=== PATIENT | female | born 1965 | race Caucasian/White ===

== ENCOUNTER 2019-05-27 | Inpatient (IN) | payer OTHER ==
--- NOTE | 2019-05-26 16:00 | NUR ---
PT IMMEDIALTY TO ROOM FOR BEDSIDE TRIAGE
[2019-05-26 16:16] LABS: HEMATOCRIT 46.6 % (37.0-47.0); HEMOGLOBIN 15.1 g/dl (12.0-16.0); IMMATURE GRANULOCYTES 0.2 % (0.0-5.0); MEAN CELL VOLUME 96.1 fL CALC (80.0-100.0); MEAN CORPUSCULAR HGB 31.1 pG CALC (26.0-32.0); MEAN CORPUSCULAR HGB CONC 32.4 g/L CALC (32.0-36.0); NEUT# 7.2 thou/uL (2.00-7.15); RED BLOOD COUNT 4.85 mill/uL (4.20-5.60); RED CELL DISTRI WIDTH 12.9 % (11.5-15.5)
[2019-05-26 16:29] LABS: ALBUMIN 4.6 g/dL (3.2-5.0); BILIRUBIN, TOTAL 0.4 mg/dL (0.0-1.4); BUN 5 mg/dL (7-17); BUN/CREATININE RATIO 8 (12-20 (CALC)); CARBON DIOXIDE 29 mmol/l (22-30); CHLORIDE 97 mmol/l (95-108); CREATININE 0.6 mg/dL (0.5-1.0); GFR > 60 ML/MIN (>=60 (CALC)); GFR FOR AFR.AMER. > 60 ML/MIN (>=60 (CALC)); SGOT/AST 21 u/l (14-36); SODIUM 138 mmol/l (137-146)
[2019-05-26 16:39] LABS: ALKALINE PHOSPHATASE 80 u/l (38-126); ANION GAP 15 (6-22 (CALC)); POTASSIUM 3.3 mmol/l (3.5-5.1)
--- NOTE | 2019-05-26 17:00 | NUR ---
PT SITTING IN HIGH FOWLERS POSITION; NO ACUTE S/S OF DISTRESS NOTED; O2 NC IN PLACE; IV ANTIBIOTICS INFUSING; PT C/O LOWER ABD PAIN RATING 9 OUT OF 10; MD NOTIFIED
--- NOTE | 2019-05-26 17:56 | NUR ---
PT TO CT IN STABLE CONDITION AT THIS TIME
--- NOTE | 2019-05-26 18:29 | NUR ---
PT MEDICATED PER MAR FOR LOWER QUADRANT PAIN RATING 9 OUT OF 10; VSS; WILL CONTINUE TO MONITOR
--- NOTE | 2019-05-26 18:50 | NUR ---
REPORT TO MIMA RADFORD
--- NOTE | 2019-05-26 19:00 | NUR ---
IN ROOM INTRODUCED SELF TO PT. NO C/O AT THIS TIME.
--- NOTE | 2019-05-26 19:43 | NUR ---
SBAR SENT TO ICU
--- NOTE | 2019-05-26 19:57 | NUR ---
REPORT TO MACHO GUILLERMO.
--- NOTE | 2019-05-26 20:05 | NUR ---
PT. TAKEN TO ICU VIA STRETCHER, NO C/O.
--- NOTE | 2019-05-26 20:05 | NUR ---
PT. ARRIVES VIA STRETCHER FROM ER. PT. WITH EVEN, SHALLOW RESPIRATION AND DYSPNEA WITH EXERTION. SCANT COUGH NOTED. WHEEZES NOTED THROUGHOUT. COARSE TO BASES BILATERALLY. PT. REPORTS 4/10 PAIN TO PUBIS BONE AREA AT THIS TIME. PT. AWAKE, ALERT, ORIETNED X 3. ASSISTED TO BSC AT THIS TIME. URINE SPECIMEN OBTAINED AND WILL SEND FOR LAB. PT. REPORTS SHE HAS UPPER AND LOWER DENTURES, BUT DOES NOT HAVE EITHER WITH HER. INTRODUCED TO CALL LIGHT AND CALL SYSTEM. UPDATED ON PLAN OF CARE. WILL CONTINUE TO CLOSELY MONITOR.
[2019-05-26 20:15] VITALS: BP 80/44
[2019-05-26 20:30] VITALS: BP 75/46
[2019-05-26 20:45] VITALS: BP 81/51
[2019-05-26 21:00] VITALS: BP 91/55
--- NOTE | 2019-05-26 21:05 | NUR ---
PT. PROVIDED WITH HS MEAL. PT. VOICES NO OTHER COMPLAINTS OR NEEDS AT THIS TIME. CALL LIGHT REMAINS WITHIN REACH. WILL CONTINUE TO MONITOR.
[2019-05-26 22:00] VITALS: BP 82/51
--- NOTE | 2019-05-26 22:35 | NUR ---
PT. RESTING IN BED WITH EYES CLOSED IN NO DISTRESS. SCAN DRY COUGH NOTED. IV FLUIDS INITIATED PER PHYSICIAN ORDERS. CALL LIGHT REMAINS WITHIN REACH. WILL CONTINUE TO CLOSELY MONITOR.
[2019-05-26 23:21] LABS: URINE BILIRUBIN - DIPSTICK NEGATIVE (NEGATIVE); URINE BLOOD DIPSTICK NEGATIVE (NEGATIVE); URINE COLOR YELLOW; URINE GLUCOSE - DIPSTICK NEGATIVE (NEGATIVE); URINE KETONE 15 mg/dL (NEGATIVE); URINE LEUK ESTERASE NEGATIVE (NEGATIVE); URINE NITRITE - DIPSTICK NEGATIVE (Negative); URINE PROTEIN - DIPSTICK NEGATIVE (NEG-TRACE); URINE SPECIFIC GRAVITY <=1.005; URINE UROBILINOGEN - DIPSTICK 0.2 E.U./dL (0.2)
[2019-05-27] VITALS (12 sets, daily range): BP systolic 84–113; BP diastolic 46–78
[~2019-05-27] MED LIST: ADVAIR DISK1 IN; ADVAIR DISK1 INH; ALBUTERO1 IN; ALBUTEROL SUL0.083 % IN; ALBUTEROL2.5 MG/3 M IN; ALPRAZOLAM0.5 M2 PO; AMOX/K CLAV500 MG PO; AMOXICILLIN875 MG PO; ATORVASTATIN CA80 MG PO; ATROVENT HFA17 MCG IN; AUGMENTIN500TAB PO; CEPHALEXIN500 MG PO; CIPRO500 MG PO; CIPROFLOXACIN500 M1 PO; CLARITIN10 M1 PO; COMBIVENT IN; CYCLOBENZAPR10 MG PO; DEPO-MEDROL40 MG/ML IM; DICLOFENAC SODI75 M1 PO; DOXYCYCL HYC100 MG PO; HYDROXYZ HCL25 MG PO; IPRATROPIU0.5 MG/3 M NEB; LEXAPRO10 MG OR; LORTAB 5 OR; LORTAB 7.57.5 MG PO; LORTAB5 PO; MELOXICAM15 MG PO; METHOCARBAM500 MG PO; METRONIDAZOL500 MG PO; MOTRIN800 MG/TAB PO; NAPROSYN375 MG PO; NAPROSYN500 MG OR; NAPROSYN500 MG PO; NAPROXEN500 MG PO; NEBULIZER COMPRESSOR; NICOTINE T21 MG/PATC TD; NO HOME MEDS; NORCO1 TA2 PO; PERCOCET 5/325M1 TAB OR; PREDNISONE10 MG PO; PROAIR HFA IN; PROVENTIL IN; PROVERA5 MG PO; ROBITUSSIN AC10 ML OR; ROBITUSSIN AC10 ML PO; SYMBICORT1 AE1 IN; TRIAMCINOLON0.11 EX; ULTRAM50 MG OR; ULTRAM50 MG PO; VALIUM5 MG PO; ZOLPIDEM TARTRAT5 MG PO; ZYPREXA OR; ZYPREXA ZYDI15 MG OR; ZYPREXA ZYDI5 MG OR
--- NOTE | 2019-05-27 00:05 | NUR ---
PT. WITH BRONCHOSPASM AT THIS TIME. RT CALLED FOR NEB TREATMENT. BY THE TIME RT ARRIVED, EPISODE HAD RESOLVED. WILL MEDICATE ORDERED. CALL LIGHT REMAINS WITHIN REACH. WILL CONTINUE TO MONITOR.
--- NOTE | 2019-05-27 00:22 | NUR ---
EPISODE OF BRONCHOSPASM REMAINS IMPROVED AT THIS TIME. PT. PROVIDED WITH FAN AND MEDICATIONS ORDERED. IV ZOSYN INFUSING AT THIS TIME WITHOUT REACTIONS. CALL LIGHT REMAINS WITHIN REACH. WILL CONTINUE TO CLOSELY MONITOR.
--- NOTE | 2019-05-27 02:04 | NUR ---
PT. CONTINUES WITH INTERMITTENT EPISODES OF BRONCHOSPASM. LESS PRONOUNCED THAT PRIOR MIDNIGHT EPISODE. CALL LIGHT REMAINS WITHIN REACH. RESPS REMAIN SHALLOW, EVEN AT THIS TIME. SPO2 93-98% ON 3L NC.
--- NOTE | 2019-05-27 03:25 | NUR ---
PT. RESTING WITH EYES CLOSED IN NO DISTRESS. BP/HR STABLE. INFREQUENT COUGHING AT THIS TIME. DRY/WHEEZY COUGH. CALL LIGHT REMAINS WITHIN REACH. WILL CONTINUE TO MONITOR.
--- NOTE | 2019-05-27 04:59 | NUR ---
LAB AT BEDSIDE TO DRAW PT.
[2019-05-27 05:39] LABS: IMMATURE GRANULOCYTES 0.4 % (0.0-5.0); MEAN CELL VOLUME 98.2 fL CALC (80.0-100.0); MEAN CORPUSCULAR HGB 31.8 pG CALC (26.0-32.0); MEAN CORPUSCULAR HGB CONC 32.4 g/L CALC (32.0-36.0); NEUT# 4.47 thou/uL (2.00-7.15); RED BLOOD COUNT 3.93 mill/uL (4.20-5.60); RED CELL DISTRI WIDTH 13.1 % (11.5-15.5)
[2019-05-27 05:58] LABS: HEMATOCRIT 38.6 % (37.0-47.0); HEMOGLOBIN 12.5 g/dl (12.0-16.0)
--- NOTE | 2019-05-27 06:05 | NUR ---
IV ZOSYN INFUSING ORDERED. NO REACTIONS NOTED. CALL LIGHT REMAINS WITHIN REACH.
[2019-05-27 06:06] LABS: BUN 9 mg/dL (7-17); BUN/CREATININE RATIO 17 (12-20 (CALC)); CARBON DIOXIDE 28 mmol/l (22-30); CHLORIDE 105 mmol/l (95-108); CREATININE 0.5 mg/dL (0.5-1.0); GFR > 60 ML/MIN (>=60 (CALC)); GFR FOR AFR.AMER. > 60 ML/MIN (>=60 (CALC)); SODIUM 138 mmol/l (137-146)
[2019-05-27 06:08] LABS: ANION GAP 9 (6-22 (CALC)); POTASSIUM 4.3 mmol/l (3.5-5.1)
--- NOTE | 2019-05-27 07:12 | NUR ---
RECIEVED REPORT FROM TOP STEEP TENDER, VSS, NO S/S OF DISTRESS NOTED, WILL CONTINUE TO MONITOR.
--- NOTE | 2019-05-27 08:00 | NUR ---
PT A AND O X3, PT MEDICATED PER EMAR, VSS, NO S/S OF DISTRESS NOTED, PT EATING BREAKFAST, DENIES PAIN, WILL CONTINUE TO MONITOR
--- NOTE | 2019-05-27 10:00 | NUR ---
PT ASSISTED TO BEDSIDE COMMODE AND BACK TO BED VSS, NO S/S OF DISTRESS NOTED, NO C/O PAIN, WILL CONTINUE TO MONTIOR
--- NOTE | 2019-05-27 12:00 | NUR ---
PT A AND O X3, PT SITTING UP EATING LUNCH, VSS, NO S/S OF DISTRESS NOTED, MD AWARE OF LOW BP, WILL CONTINUE TO MONITOR.
--- NOTE | 2019-05-27 14:00 | NUR ---
ASSISTED PT TO BEDSIDE COMMODE. MEDICATED PER EMAR, NO S/S OF DISTRESS NOTED, WILL CONTINUE TO MONITOR.
--- NOTE | 2019-05-27 15:35 | NUR ---
pneumonia vaccine assessment: had pneumonia vaccine in 2014 and will not need another pneumonia vaccine until she turns 67 according to current vaccine schedule.
--- NOTE | 2019-05-27 16:00 | NUR ---
pt sleeping, vss, no s/s of distress noted, will continue to monitor
--- NOTE | 2019-05-27 17:49 | NUR ---
HOUSE SUP & SECURITY CALLED TO ROOM AFTER PT STARTED YELLING AT HER RN, THROWING THINGS, & SAYING SHE WANTS TO GO HOME. HER RN REMAINED CALM AND TRIED TO EXPLAIN REASONS WHY PT SHOULD STAY IN HOSPITAL. PT BECAME EMOTIONAL & BEGAN CRYING. RN STAYED AT BEDSIDE, OFFERING MORAL SUPPORT & POSSIBLE MEDICATIONS TO HELP.
--- NOTE | 2019-05-27 18:33 | NUR ---
pt a and o x3, pt medicated for anxiety per emar, vss, no s/s of distress noted, pt is crying worried about things she needs to take care of at home, pt reassured and redirected. will continue to monitor.
--- NOTE | 2019-05-27 18:49 | NUR ---
assisted pt to bedside commode, no s/s of distress noted, reprort given to night rn
--- NOTE | 2019-05-27 18:55 | NUR ---
REPORT FROM Opal ARGUELLES RN. ASSUMED PT. CARE.
--- NOTE | 2019-05-27 19:45 | NUR ---
PT. FOUND SITTING UP IN BED IN NO DISTRESS. REMAINS WITH INTERMITTENT DRY, NON-PRODUCTIVE WHEEZING TYPE COUGH AT THIS TIME. PT. STATES HER COUGH HAS IMPROVED SOME TODAY. PT. RESPS EVEN, SHALLOW AT THIS TIME. LUNGS WITH DIMINISHED BASES AND EXPIRATORY WHEEZES THROUGHOUT. NO ABDOMINAL PAIN UPON PALPATION. PT. DENIES COMPLAINTS OF PAIN. NO EDEMA NOTED. BP STABLE AT 105 SYSTOLIC. IV FLUIDS INFUSING AT 100 CC/HR. UPDATED ON PLAN OF CARE FOR THE EVENING. S1, S2 NOTED. SLIGHTLY TACY AT 105 AT THIS TIME, SINUS ON THE MONITOR. MAE. DIOP. AFEBRILE. SPO2 IS 99% ON THE 3L NC AT THIS TIME. PT. INTERMITTENTLY EMOTIONAL, STATING SHE HAS A LOT GOING ON TO TRY TO FIND A PLACE TO LIVE AND IS IN THE PROCESS OF OBTAINING A [facility]ESSEE FOR HELP. WILL CONTINUE TO ASSESS FOR NEEDS. CALL LIGHT REMAINS WITHIN REACH.
--- NOTE | 2019-05-27 20:19 | NUR ---
REPORT FROM Opal ARGUELLES RN. ASSUMED PT. CARE.
--- NOTE | 2019-05-27 21:05 | NUR ---
THIS RN CALLED TO ROOM BY PATIENT WHO IS DEMANDING TO LEAVE. PT. STATES SHE HAS TO LEAVE TONIGHT BECAUSE SHE WILL "BE HOMELESS IF SHE DOESN'T". PT. STATES SHE NEEDS TO GET HOME TO FILL OUT PAPERWORK AND SUBMIT ONLINE FOR A NEW PLACE TO LIVE AND IT IS THROUGH A [employer]SEE TYPE PROGRAM. PT. STRONGLY ENCOURAGED TO PLEASE STAY, BUT PT. AGAIN IS REFUSING. PT. STATES SHE WILL RETURN IF SHE NEEDS TO, BUT SHE HAS TO TAKE CARE OF HER HOUSING SITUATION. MADE AWARE. HE WILL PROVIDER HER WITH PRESCRIPTIONS, BUT SHE MUST SIGN AMA.
[2019-05-27] MEDS ORDERED: LEVAQUIN750 MG PO (21:15)
[2019-05-27] MEDS ORDERED: PREDNISONE10 MG PO (21:15)
--- NOTE | 2019-05-27 22:00 | NUR ---
PT. TAKEN VIA WHEELCHAIR DOWN TO WAITING CAB. IV LINE DISCONTINUED AND DRESSING APPLIED. VITAL SIGNS OBTAINED AND PATIENT DID SIGN AMA PAPERWORK. PT. WAS AGAIN, PRIOR TO SIGNING PAPERWORK WAS ENCOURAGED TO STAY AND WAS INFORMED OF THE RISKS UP TO AND INCLUDING . PT. VERBALIZED THAT SHE WOULD RETURN IF NECESSARY. PT. GIVEN HER PRESCRIPTIONS FOR PREDNISONE TAPER DOSE AND LEVAQUIN ANTIBIOTICS. PROVIDED WITH INFORMATION ON [facility] AND LEAST EXPENSIVE LOCATIONS FOR MEDS TO BE FILLED. PT. THANKFUL AND AGAIN STATES THAT SHE WILL RETURN IF NECESSARY.
== END 2019-05-27 22:00 | disposition left against medical advice (07) | DRG 190 ==
PROVIDERS: Family Medicine; ADMIT Internal Medicine
DX: J44.1 Chronic obstructive pulmonary disease with (acute) exacerbation (principal); J96.21 Acute and chronic respiratory failure with hypoxia; K57.32 Diverticulitis of large intestine without perforation or abscess without bleeding; C56.1 Malignant neoplasm of right ovary; E78.5 Hyperlipidemia, unspecified; F17.200 Nicotine dependence, unspecified, uncomplicated; Z90.710 Acquired absence of both cervix and uterus; Z90.721 Acquired absence of ovaries, unilateral
CPT/HCPCS: J1650; Q9967

== ENCOUNTER 2021-11-10 12:09 | Emergency (ER) | payer OTHER ==
[~2021-11-10] VITALS: Ht 165.1 cm; Wt 45.3 kg
[~2021-11-10 12:09] MED LIST changes: +LEVAQUIN750 MG PO; +TRAMADOL HCL50 MG PO
[2021-11-10 12:39] VITALS: BP 126/75
[2021-11-10 13:30] VITALS: BP 126/75
[2021-11-10 13:30] LABS: HEMATOCRIT 42.1 % (37.0-47.0); HEMOGLOBIN 13.2 g/dl (12.0-16.0); MEAN CELL VOLUME 99.5 fL CALC (80.0-100.0); MEAN CORPUSCULAR HGB 31.2 pG CALC (26.0-32.0); MEAN CORPUSCULAR HGB CONC 31.4 g/dL CAL (32.0-36.0); NEUT# 3.48 thou/uL (2.00-7.15); RED BLOOD COUNT 4.23 mill/uL (4.20-5.60); RED CELL DISTRI WIDTH 12.4 % (11.5-15.5)
[2021-11-10 13:45] LABS: ALBUMIN 3.9 g/dL (3.2-5.0); ALKALINE PHOSPHATASE 77 u/l (38-126); ANION GAP 8 (6-22 (CALC)); BILIRUBIN, TOTAL 0.2 mg/dL (0.0-1.4); BUN 8 mg/dL (7-17); BUN/CREATININE RATIO 16 (12-20 (CALC)); C-REACTIVE PROTEIN < 0.5 mg/dL (0-0.9); CARBON DIOXIDE 31 mmol/l (22-30); CHLORIDE 102 mmol/l (95-108); CREATININE 0.5 mg/dL (0.5-1.0); GFR FOR AFR.AMER. > 60 ML/MIN (>=60 (CALC)); GFR OTHER RACES > 60 ML/MIN (>=60 (CALC)); POTASSIUM 4.3 mmol/l (3.5-5.1); SODIUM 136 mmol/l (137-146); TOTAL PROTEIN 6.8 g/dL (6.3-8.2)
[2021-11-10 13:50] LABS: SGOT/AST 36 u/l (14-36)
[2021-11-10] MEDS ORDERED: LORTAB5 PO (15:07)
[2021-11-10] MEDS ORDERED: NAPROXEN500 MG PO (15:07)
[2021-11-10 15:42] VITALS: BP 126/75
== END 2021-11-10 15:55 | disposition home or self-care (01) ==
LOC: ED 12:09
PROVIDERS: Nurse Practitioner
DX: M54.12 Radiculopathy, cervical region (principal); J44.9 Chronic obstructive pulmonary disease, unspecified; F17.200 Nicotine dependence, unspecified, uncomplicated; Z20.822 Contact with and (suspected) exposure to COVID-19

== ENCOUNTER 2022-01-24 10:32 | Emergency (ER) | payer OTHER ==
[2022-01-24] VITALS (8 sets, daily range): BP systolic 110–132; BP diastolic 65–79
[~2022-01-24] VITALS: Ht 165.1 cm; Wt 47.0 kg
[2022-01-24 10:50] LABS: HEMOGLOBIN 14.6 g/dl (12.0-16.0); IMMATURE GRANULOCYTES 0.2 % (0.0-5.0); MEAN CELL VOLUME 97.9 fL CALC (80.0-100.0); MEAN CORPUSCULAR HGB 31.1 pG CALC (26.0-32.0); MEAN CORPUSCULAR HGB CONC 31.7 g/dL CAL (32.0-36.0); NEUT# 5.69 thou/uL (2.00-7.15); RED BLOOD COUNT 4.7 mill/uL (4.20-5.60)
[2022-01-24 11:07] LABS: ALBUMIN 4.6 g/dL (3.2-5.0); ALKALINE PHOSPHATASE 102 u/l (38-126); ANION GAP 12 (6-22 (CALC)); BILIRUBIN, TOTAL 0.4 mg/dL (0.0-1.4); BUN 6 mg/dL (7-17); BUN/CREATININE RATIO 11 (12-20 (CALC)); CARBON DIOXIDE 34 mmol/l (22-30); CHLORIDE 99 mmol/l (95-108); CREATININE 0.5 mg/dL (0.5-1.0); GFR FOR AFR.AMER. > 60 ML/MIN (>=60 (CALC)); GFR OTHER RACES > 60 ML/MIN (>=60 (CALC)); POTASSIUM 4.8 mmol/l (3.5-5.1); SGOT/AST 24 u/l (14-36); SODIUM 140 mmol/l (137-146); TOTAL PROTEIN 7.5 g/dL (6.3-8.2)
[2022-01-24] MEDS ORDERED: PREDNISONE50 MG PO (12:16)
== END 2022-01-24 13:02 | disposition home or self-care (01) ==
LOC: ED 10:32
PROVIDERS: Emergency Medicine
DX: J44.1 Chronic obstructive pulmonary disease with (acute) exacerbation (principal); F17.200 Nicotine dependence, unspecified, uncomplicated

== ENCOUNTER 2024-07-11 11:52 | Emergency (ER) | payer OTHER ==
[~2024-07-11] VITALS: Ht 162.6 cm; Wt 47.6 kg
[~2024-07-11 11:52] MED LIST changes: +ATORVASTATIN CA20 MG PO; +BREZTRI AEROSPH1 AER; +ERTAPENEM1 G1 IV; +MUCINEX600 MG PO; +OHTUVAYRE NEB; +PREDNISONE50 MG PO; +VARENICLINE TART1 M1 PO; +VENTOLIN HFA108 MCG IN; +VITAMIN D-32000 UNI1 PO
[2024-07-11 11:57] VITALS: BP 115/71
[2024-07-11 12:00] VITALS: BP 118/68
[2024-07-11] MEDS ORDERED: KETOROLAC TROMETHAMINE 30 MG/ML SDV IM ONE (12:20)
[2024-07-11 12:30] VITALS: BP 120/61
[2024-07-11 12:38] LABS: BASO% 0.2 % (0-3); EOS% 0.9 % (0-8); HEMATOCRIT 38.3 % (37.0-47.0); HEMOGLOBIN 12.1 g/dl (12.0-16.0); IMMATURE GRANULOCYTES 0.2 % (0.0-5.0); LYMPH% 12.9 % (15-41); MEAN CELL VOLUME 99.5 fL CALC (80.0-100.0); MEAN CORPUSCULAR HGB 31.4 pG CALC (26.0-32.0); MEAN CORPUSCULAR HGB CONC 31.6 g/dL CAL (32.0-36.0); NEUT# 6.64 thou/uL (2.00-7.15); NEUT% 78.8 % (42-76); RED BLOOD COUNT 3.85 mill/uL (4.20-5.60); RED CELL DISTRI WIDTH 12.1 % (11.5-15.5)
[2024-07-11 12:50] LABS: ALBUMIN 3.7 g/dL (3.2-5.0); BILIRUBIN, TOTAL 0.8 mg/dL (0.02-1.3); CREATININE 0.6 mg/dL (0.5-1.0); POTASSIUM 4.3 mmol/l (3.5-5.1); TOTAL PROTEIN 6.2 g/dL (6.3-8.2)
[2024-07-11 13:15] LABS: URINE BILIRUBIN - DIPSTICK Negative (NEGATIVE); URINE BLOOD DIPSTICK Negative (NEGATIVE); URINE GLUCOSE - DIPSTICK Negative (NEGATIVE); URINE KETONE Negative (NEGATIVE); URINE LEUK ESTERASE Negative (NEGATIVE); URINE NITRITE - DIPSTICK Negative (Negative); URINE PROTEIN - DIPSTICK Negative (NEG-TRACE); URINE UROBILINOGEN - DIPSTICK 0.2 E.U./dL (0.2)
[2024-07-11 13:22] LABS: URINE COLOR Light yellow
[2024-07-11 13:39] VITALS: BP 120/61
== END 2024-07-11 13:53 | disposition home or self-care (01) ==
LOC: ED 11:52
PROVIDERS: Family Medicine
DX: M10.09 Idiopathic gout, multiple sites (principal); J44.9 Chronic obstructive pulmonary disease, unspecified